=== PATIENT | male | born 1970 | race Hispanic/Latino ===

== ENCOUNTER 2020-03-22 15:54 | Outpatient (CLI) | payer OTHER ==
--- NOTE | 2020-03-22 16:14 | CT ---
Exam: Head CT without contrast HISTORY: Concussion. Headache x3 months. COMPARISON: none FINDINGS: Hemorrhage: No intraparenchymal hemorrhage or extra-axial hematoma. Brain parenchyma: Cortical galvin-white matter differentiation is preserved. No mass effect or midline shift. Basilar cisterns are patent. Ventricular system: Ventricles and sulci are patent and symmetric. Calvarium: Intact. Sinuses and mastoid air cells: Partial opacification of the left sphenoid sinus. IMPRESSION: No intracranial posttraumatic sequelae. No acute intracranial process.
== END 2020-03-22 15:55 | disposition home or self-care (01) ==
LOC: SCSCT 15:54
PROVIDERS: ATTEND Family Medicine
DX: S06.0X9A Concussion with loss of consciousness of unspecified duration, initial encounter (principal)
CPT/HCPCS: 70450